=== PATIENT | female | born 1980 | race American Indian/Alaskan Native ===

== ENCOUNTER 2016-10-22 10:54 | Outpatient (CLI) | payer MEDICAID ==
--- NOTE | 2016-10-23 13:30 | Ultrasound Report ---
Bilateral mammogram with spot compression magnification of ill-defined density in subareolar area left breast followed by sonographic examination of the region: No previous studies available. CAD study utilized. Findings: Predominance adipose tissue bilaterally. Ill-defined linear density/focal architectural distortion noted in subareolar area left breast. No microcalcifications or mass. Normal axilla. Spot compression magnification view is partial persistence of the linear density subareolar area however no distinct mass or microcalcification is seen. Sonographic examination reveals no cystic or solid mass. Impression: Benign findings. Annual followup with mammogram recommended. BI-RADS CATEGORY: 2 = Benign ACR BI-RADS MAMMOGRAPHIC CODES: 0 = Needs additional imaging evaluation; 1 = Negative; 2 = Benign; 3 = Probably benign; 4 = Suspicious; 5 = Malignant; 6 = Known biopsy-proven malignancy COMMENT: 1. Dense breast tissue, i.e., adenosis, fibrocystic changes, etc., may obscure an underlying neoplasm. 2. Approximately 10% of cancers are not detected with mammography. 3. A negative mammography report should not delay biopsy if a clinically suspicious mass is present. COMMENT: Patient follow-up letters are generated in [employer].
== END 2016-10-22 10:55 | disposition home or self-care (01) ==
LOC: MAMMO 10:54
PROVIDERS: ATTEND Nurse Practitioner Women's Health
DX: N64.9 Disorder of breast, unspecified (principal); I10 Essential (primary) hypertension
CPT/HCPCS: 76642; G0204; 77066

== ENCOUNTER 2021-04-03 09:13 | Observation (INO) | payer MEDICAID ==
--- NOTE | 2021-04-03 09:21 | Emergency Department Report ---
HPI - General Time Seen by Provider: 04/03/21 09:17 - HPI HPI: 41-year-old -Mexican female presents to the emergency department via EMS from home as a code stroke. The patient woke up this morning with right-sided weakness, numbness, and the patient says that she cannot see from her right eye. She also awoke with a mild generalized headache. She has a past medical hi story of hypertension. She did not take anything, nor receive anything, for her symptoms prior to presentation today. No recent travel or sick contacts at home. She also presents with nausea with vomiting. ED Past Medical Hx - Past Medical History Hx Hypertension: Yes Hx Congestive Heart Failure: No Hx Diabetes: No Hx Asthma: No Hx COPD: No Additional medical history: Umbilical hernia, Vaginal delivery x 4 - Surgical History Additional Surgical History: TUBAL LIGATION. UMBILICAL HERNIA REPAIR 06/01/14 - Social History Smoking Status: Never Smoker Substance Use Type: None - Medications Home Medications: Home Medications Medication Instructions Recorded Confirmed Last Taken Type atenoloL [Tenormin] 50 mg PO QDAY #30 tablet 03/28/14 06/22/14 06/22/14 Rx Motrin 800 mg PO Q6H PRN 06/03/14 06/22/14 06/03/14 06:30 History Ibuprofen [Motrin] 600 mg PO Q8H PRN #50 tablet 08/08/15 Unknown Rx ED Review of Systems ROS: Stated complaint: RT SIDE WEAKNESS/SYNCOPE Other details as noted in HPI Comment: All other systems reviewed and negative Constitutional: denies: chills, fever Eyes: vision change (Right eye). denies: eye pain ENT: denies: ear pain, throat pain Respiratory: denies: cough, shortness of breath Cardiovascular: denies: chest pain, palpitations Gastrointestinal: nausea, vomiting Genitourinary: denies: dysuria, discharge Musculoskeletal: denies: back pain, arthralgia Skin: denies: rash, lesions Neurological: headache, weakness, numbness Physical Exam - Physical Exam Physical Exam: GENERAL: The patient is ill-appearing. HENT: Normocephalic. Atraumatic. Patient has moist mucous membranes. EYES: Extraocular motions are intact. Pupils equal reactive to light bilaterally. No gaze preference. NECK: Supple. Trachea is midline. CHEST/LUNGS: Clear to auscultation. There is no respiratory distress noted. HEART/CARDIOVASCULAR: Regular. There is no tachycardia. There is no murmur. ABDOMEN: Abdomen is soft, nontender. Patient has normal bowel sounds. There is no abdominal distention. SKIN: Skin is warm and dry. NEURO: The patient is awake, alert, and oriented. The patient is cooperative. Right upper extremity pronator drift. No movement of the right lower extremity against gravity. Subjective decrease sensation to the right side of the face, arm and right leg when compared to the left side. Normal speech. No facial asymmetry. MUSCULOSKELETAL: There is no tenderness or deformity. ED Course - Consultations Consultation #1: 04/03/21 09:58 Patient was seen by the telemedicine neurologist, Dr. Otero, who is full recommendations will be in the chart. She agrees that the patient does not appear to be a TPA candidate as she woke up with the symptoms and there is no obvious last known well time. If there is no CT angiography evidence of a large vessel occlusion, then the patient will be admitted to the hospital for MRI and further stroke work-up. ED Medical Decision Making - Lab Data Result diagrams: 04/03/21 09:55 04/03/21 09:55 Lab Results 04/03/21 04/03/21 04/03/21 Range/Units 09:52 09:55 09:55 WBC 7.9 (4.5-11.0) K/mm3 RBC 4.01 (3.65-5.03) M/mm3 Hgb 13.1 (10.1-14.3) gm/dl Hct 39.4 (30.3-42.9) % MCV 98 H (79-97) fl MCH 33 H (28-32) pg MCHC 33 (30-34) % RDW 13.6 (13.2-15.2) % Plt Count 310 (140-440) K/mm3 Lymph % (Auto) 22.2 (13.4-35.0) % [place] % (Auto) 6.6 (0.0-7.3) % Eos % (Auto) 1.3 (0.0-4.3) % Baso % (Auto) 0.9 (0.0-1.8) % Lymph # (Auto) 1.8 (1.2-5.4) K/mm3 [place] # (Auto) 0.5 (0.0-0.8) K/mm3 Eos # (Auto) 0.1 (0.0-0.4) K/mm3 Baso # (Auto) 0.1 (0.0-0.1) K/mm3 Seg Neutrophils % 69.0 (40.0-70.0) % Seg Neutrophils # 5.5 (1.8-7.7) K/mm3 PT 14.3 (12.2-14.9) Sec. INR 1.00 (0.87-1.13) APTT 24.1 L (24.2-36.6) Sec. Thrombin Time 18.7 (15.1-19.6) Sec. Sodium (137-145) mmol/L Potassium (3.6-5.0) mmol/L Chloride (98-107) mmol/L Carbon Dioxide (22-30) mmol/L Anion Gap mmol/L BUN (7-17) mg/dL Creatinine (0.6-1.2) mg/dL Estimated GFR ml/min BUN/Creatinine Ratio % Glucose (65-100) mg/dL POC Glucose 130 H (70-105) mg/dL Calcium (8.4-10.2) mg/dL Total Bilirubin (0.1-1.2) mg/dL AST (5-40) units/L ALT (7-56) units/L Alkaline Phosphatase (35-129) units/L Total Creatine Kinase (30-135) units/L CK-MB (CK-2) (0.0-4.0) ng/mL CK-MB (CK-2) Rel Index (0-4) Troponin T (0.00-0.029) ng/mL Total Protein (6.3-8.2) g/dL Albumin (3.9-5) g/dL Albumin/Globulin Ratio % TSH (0.270-4.200) mlU/mL Plasma/Serum Alcohol (0-0.07) % 04/03/21 04/03/21 04/03/21 Range/Units 09:55 09:55 09:55 WBC (4.5-11.0) K/mm3 RBC (3.65-5.03) M/mm3 Hgb (10.1-14.3) gm/dl Hct (30.3-42.9) % MCV (79-97) fl MCH (28-32) pg MCHC (30-34) % RDW (13.2-15.2) % Plt Count (140-440) K/mm3 Lymph % (Auto) (13.4-35.0) % [place] % (Auto) (0.0-7.3) % Eos % (Auto) (0.0-4.3) % Baso % (Auto) (0.0-1.8) % Lymph # (Auto) (1.2-5.4) K/mm3 [place] # (Auto) (0.0-0.8) K/mm3 Eos # (Auto) (0.0-0.4) K/mm3 Baso # (Auto) (0.0-0.1) K/mm3 Seg Neutrophils % (40.0-70.0) % Seg Neutrophils # (1.8-7.7) K/mm3 PT (12.2-14.9) Sec. INR (0.87-1.13) APTT (24.2-36.6) Sec. Thrombin Time (15.1-19.6) Sec. Sodium 138 (137-145) mmol/L Potassium 3.1 L (3.6-5.0) mmol/L Chloride 99.7 (98-107) mmol/L Carbon Dioxide 21 L (22-30) mmol/L Anion Gap 20 mmol/L BUN 13 (7-17) mg/dL Creatinine 0.6 (0.6-1.2) mg/dL Estimated GFR > 60 ml/min BUN/Creatinine Ratio 22 % Glucose 135 H (65-100) mg/dL POC Glucose (70-105) mg/dL Calcium 9.4 (8.4-10.2) mg/dL Total Bilirubin 0.60 (0.1-1.2) mg/dL AST 27 (5-40) units/L ALT 34 (7-56) units/L Alkaline Phosphatase 42 (35-129) units/L Total Creatine Kinase 92 (30-135) units/L CK-MB (CK-2) < 1.0 (0.0-4.0) ng/mL CK-MB (CK-2) Rel Index 1.0 (0-4) Troponin T < 0.010 (0.00-0.029) ng/mL Total Protein 7.5 (6.3-8.2) g/dL Albumin 4.5 (3.9-5) g/dL Albumin/Globulin Ratio 1.5 % TSH 0.802 (0.270-4.200) mlU/mL Plasma/Serum Alcohol < 0.01 (0-0.07) % - EKG Data -: EKG Interpreted by Co EKG shows normal: sinus rhythm, axis, intervals (Prolonged PA interval), QRS complexes (LVH), ST-T waves (Flattening of the T waves) Rate: normal - EKG Data When compared to previous EKG there are: changes noted (Previous EKG from 09/30/2014 does not show prolonged PA interval) Interpretation: other (Sinus rhythm at 84 bpm, normal axis, slightly prolonged PA interval, LVH. No ST elevation MD) - Radiology Data Radiology results: report reviewed CT HEAD WITHOUT CONTRAST INDICATION / CLINICAL INFORMATION: CODE STROKE [phone]. TECHNIQUE: All CT scans at this location are performed using CT dose reduction for ALARA by means of automated exposure control. COMPARISON: None available. FINDINGS: HEMORRHAGE: No evidence of intracranial hemorrhage or extra-axial fluid collection. EXTRA-AXIAL SPACES: Cortical sulci, sylvian fi ssures and basilar cisterns have an unremarkable appearance. VENTRICULAR SYSTEM: The third and lateral ventricles are of normal size and configuration. CEREBRAL PARENCHYMA: Mild diffuse white matter lucency is noted. Is the patient in hypertensive crisis Is there a history of diabetes, chronic control hypertension, cigarette smoking or renal failure A focal area of decreased brain parenchymal attenuation is observed adjacent to the frontal horn of the right lateral ventricle. This may reflect the presence of remote small deep infarction in this location . Asymmetrical bilateral basal ganglia calcification is noted. No additional areas of abnormal brain parenchymal attenuation are identified. MIDLINE SHIFT OR HERNIATION: There is no mass effect. CEREBELLUM / BRAINSTEM: Brainstem and cerebellum have an unremarkable appearance. MIDLINE STRUCTURES:No abnormalities of the pituitary gland or pineal region are identified. INTRACRANIAL VESSELS:No abnormalities are identified on this noncontrast head CT. ORBITS: visualized portions of the orbits have an unremarkable appearance. SOFT TISSUES of HEAD: No significant abnormality. CALVARIUM: Evaluation of bone windows reveals no abnormalities. PARANASAL SINUSES / MASTOID AIR CELLS: Visualized portions of the paranasal sinuses are free from inflammatory mucosal disease. Mastoid air cells are normally pneumatized. IMPRESSION: 1. Widespread white matter lucency. 2. Evidence of remote small deep infarction adjacent to the frontal horn of the right lateral ventricle. 3. No acute intracranial abnormalities are identified. CTA neck without and with intravenous contrast material CLINICAL HISTORY: stroke sx 100 ml omni 350 TECHNIQUE: Following acquisition of a timing bolus 0.625 mm thick contiguous axial scans were obtained from aortic arch to the skull base during rapid bolus intravenous contrast infusion. In addition to evaluation of axial source images multiplanar reconstructions were produced and reviewed for this report. 3 plane MIP reconstructions were produced and reviewed. Contrast dose report: Omnipaque 350: 100 ml, administered intravenously All CT examinations performed at this facility utilize modulated dose reduction, iterative reconstruction or weight-based dosing, as appropriate, to obtain a radiation dose which is as low as can reasonably be achieved. FINDINGS: Thoracic aorta:No abnormalities are identified along the course of the thoracic aorta..The origins of the great vessels have an unremarkable appearance. Brachiocephalic artery, left common carotid artery origin and left subclavian artery all have an unremarkable appearance. Right carotid artery:No abnormalities are seen along the course of the RCCA, at the right carotid bifurcation or along the cervical portions of the FAVIAN. Left carotid artery: No abnormalities are noted along the course of the left common carotid artery, at the left carotid bifurcation or along the course of the cervical segments of the LICA. Posterior circulation:The vertebral arteries have an unremarkable appearance. Both vertebral arteries contribute to the basilar artery origin. The basilar artery has an unremarkable appearance. The degree of stenosis, if any, is determined utilizing NASCET like criteria. In this case there is no indication of hemodynamically significant stenosis at the carotid bifurcations or elsewhere. Evaluation of the nonvascular soft tissue structures reveal no abnormality. There is no indication of cervical lymphadenopathy. No abnormalities are seen along the course of the airway. Visualized portions of the parotid glands and the submandibular salivary glands have a normal appearance. Thyroid gland has a normal appearance. Evaluation of the lung apices reveals no evidence of lung nodule or infiltrate. Evaluation of the cervical spine revealed no significant abnormalities. IMPRESSION: 1. No significant abnormalities are identified on CTA neck. 2. No indication of hemodynamically significant stenosis at the carotid bifurcations or elsewhere. CTA head with intravenous contrast CLINICAL HISTORY: 100 ml omni 350 TECHNIQUE: 0.625 mm thick contiguous axial scans were obtained from the skull base to the skull vertex during rapid bolus administration of intravenous contrast material. Multiplanar reconstructions were produced in the coronal and sagittal planes. In addition 3 plane MIP instructions were produced and reviewed for this report. The axial source images and reconstructed images were reviewed for this report. CONTRAST DOSE REPORT: Omnipaque 350: 100 ml administered intravenously. All CT scans at this location are performed using CT dose reduction for ALARA by means of automated exposure control. FINDINGS: Internal carotid arteries:Jonathan, cavernous, opthalmic, clinoid and supraclinoid segments of the ICAs have an unremarkable appearance. Middle cerebral arteries:Normal and symmetrical M1 segments of the middle cerebral arteries are demonstrated. No abnormalities are seen on evaluation of the insular or opercular branches. Anterior cerebral arteries:Bilaterally symmetrical A1 s egments are demonstrated. No abnormalities are seen along the course of the A2 segments or their visualized pericallosal branches. An intact anterior communicating artery is demonstrated. Vertebral arteries:Bilaterally symmetrical vertebral arteries are demonstrated. Both vertebral arteries contrib [place] to the basilar artery origin. Basilar artery:Basilar artery has an unremarkable appearance. Posterior cerebral arteries:Bilaterally symmetrical posterior cerebral arteries are identified.. Intact posterior communicating arteries are demonstrated bilaterally. [place]: Intact. See above. Dural sinuses: Dural venous sinuses are well demonstrated on this exam. There is no evidence of dural sinus thrombosis. Filling defect in the anterior aspect of the superior sagittal sinus likely reflects the presence of a pacchionian granulation. IMPRESSION: 1. No indication of intercranial stenosis or large vessel occlusion. 2. Intact [place]. - Medical Decision Making This patient woke up this morning with a complaint of decreased vision in the right eye, right-sided weakness and right-sided numbness. Code stroke was initiated. CT of the head without contrast does not show any hemorrhage, large vessel occlusion, or any acute process. CT angiography of the head and neck does not show any occlusion, stenosis, or any acute process. Patient was seen by the telemedicine neurologist, Dr. Otero, who gave the patient an NIH stroke scale of three. Since the patient woke up with symptoms she is not a TPA candidate. She does not appear to require thrombectomy given the negative CT angiography studies. Labs have been mostly unremarkable except for some mild hypokalemia with a potassium level of 3.1. She was given potassium chloride and aspirin. She will be admitted to the hospital for further evaluation and treatment for this possible CVA and has been accepted for admission by the hospitalist, Dr. Kam. Critical Care Time: Yes Critical care time in (mins) excluding proc time.: 35 Critical care attestation.: If time is entered above; I have spent that time in minutes in the direct care of this critically ill patient, excluding procedure time. Critical care time spent on this patient in doing her initial evaluation, multiple reevaluations, ordering and interpretation of labs and imaging, discussion with the telemedicine neurologist, aspirin and potassium chloride, multiple discussions with the patient. Critical Care Time: 35 minutes ED Disposition Clinical Impression: Hypokalemia, Right sided weakness CVA (cerebral vascular accident) Qualifiers: CVA mechanism: unspecified Qualified Code(s): I63.9 - Cerebral infarction, unspecified Hypertension Qualifiers: Hypertension type: primary hypertension Qualified Code(s): I10 - Essential (primary) hypertension Disposition: 09 ADMITTED INPATIENT Is pt being admited?: Yes Condition: Serious Instructions: Hypertension (ED) Referrals: PRIMARY CARE, [Primary Care Provider] - 3-5 Days Time of Disposition: 11:47
--- NOTE | 2021-04-03 09:38 | Emergency Department Report ---
Blank Doc - Documentation Documentation: [place] [facility] Consult Note # Demographics Consult Type: Acute Stroke Level 2 (4.5-24 hrs) Patient Location: Emergency Room First Name: Vanessa Last Name: Sadiq Date of : 1980 Age: 41 Gender: Female Facility: [facility] Time of Initial Page ( Time): 04/03/2021, 09:18 Time of Return Call ( Time): 04/03/2021, 09:18 # HPI History: pt woke with right sided weakness and right sided vision loss. # Scores Time of exam and NIHSS ( Time): 04/03/2021, 09:34 Level of Consciousness 1a: [0] = Alert; keenly responsive LOC Questions 1b: [0] = Answers both questions correctly LOC Commands 1c: [0] = Performs both tasks correctly Best Gaze 2: [0] = Normal Visual 3: [0] = No visual loss Facial Palsy 4: [0] = Normal symmetrical movements Motor Arm Left 5a: [0] = No drift Motor Arm Right 5b: [1] = Drift Motor Leg Left 6a: [0] = No drift Motor Leg Right 6b: [1] = Drift Limb Ataxia 7: [0] = Absent Sensory 8: [1] = Vnim-wi-mfxerjuz sensory loss Best Language 9: [0] = No aphasia Dysarthria 10: [0] = Normal Extinction and Inattention 11: [0] = No abnormality NIHSS Total: 3 # PMH-FH-SH Past Medical History: hypertension # Assessment Impression: Ischemic Stroke (Acute) Stroke Mimic # Plan Thrombolytic/Intervention: NOT IV Thrombolysis or IA Intervention candidate Thrombolytic Exclusion: > 4.5 hours Intraarterial Exclusion: no large vessel occlusion (LVO) Imaging: (urgency: STAT): CT Angiogram Head and CT Angiogram Neck AND call back with results if abnormal Imaging: (urgency: routine): MRI Brain without contrast Other: I have discussed my recommendations with the referring provider Additional Recommendations: Further work-up based on MRI results # Logistics Telemedicine: Interactive 2 way audio and visual telecommunication technology was utilized during this visit
--- NOTE | 2021-04-03 09:54 | Cat Scan Report ---
CT HEAD WITHOUT CONTRAST INDICATION / CLINICAL INFORMATION: CODE STROKE [phone]. TECHNIQUE: All CT scans at this location are performed using CT dose reduction for ALARA by means of automated e xposure control. COMPARISON: None available. FINDINGS: HEMORRHAGE: No evidence of intracranial hemorrhage or extra-axial fluid collection. EXTRA-AXIAL SPACES: Cortical sulci, sylvian fissures and basilar cisterns have an unremarkable appear ance. VENTRICULAR SYSTEM: The third and lateral ventricles are of normal size and configuration. CEREBRAL PARENCHYMA: Mild diffuse white matter lucency is noted. Is the patient in hypertensive crisi s Is there a history of diabetes, chronic control hypertension, cigarette smoking or renal failure A focal area of decreased brain parenchymal attenuation is observed adjacent to the frontal horn of the right lateral ventricle. This may reflect the presence of remote small deep infarction in this locat ion . Asymmetrical bilateral basal ganglia calcification is noted. No additional areas of abnormal b rain parenchymal attenuation are identified. MIDLINE SHIFT OR HERNIATION: There is no mass effect. CEREBELLUM / BRAINSTEM: Brainstem and cerebellum have an unremarkable appearance. MIDLINE STRUCTURES:No abnormalities of the pituitary gland or pineal region are identified. INTRACRANIAL VESSELS:No abnormalities are identified on this noncontrast head CT. ORBITS: visualized portions of the orbits have an unremarkable appearance. SOFT TISSUES of HEAD: No significant abnormality. CALVARIUM: Evaluation of bone windows reveals no abnormalities. PARANASAL SINUSES / MASTOID AIR CELLS: Visualized portions of the paranasal sinuses are free from inf lammatory mucosal disease. Mastoid air cells are normally pneumatized. IMPRESSION: 1. Widespread white matter lucency. 2. Evidence of remote small deep infarction adjacent to the frontal horn of the right lateral ventric le. 3. No acute intracranial abnormalities are identified. CODE STROKE: Time of Communication (DIE ENGRAVER/CDT): 0844 hours Central standard time Licensed Practitioner Receiving Report: Dr. Ricco Redding of the [facility] Emerge ncy Department Signer Name: Yoan Lakhani MD Signed: 04/03/2021 9:50 AM Workstation Name: [id number]
--- NOTE | 2021-04-03 09:59 | Cat Scan Report ---
CTA neck without and with intravenous contrast material CLINICAL HISTORY: stroke sx 100 ml omni 350 TECHNIQUE: Following acquisition of a timing bolus 0.625 mm thick contiguous axial scans were obtained from aort ic arch to the skull base during rapid bolus intravenous contrast infusion. In addition to evaluation of axial source images multiplanar reconstructions were produced and reviewed for this report. 3 alexandra ne MIP reconstructions were produced and reviewed. Contrast dose report: Omnipaque 350: 100 ml, administered intravenously All CT examinations performed at this facility utilize modulated dose reduction, iterative reconstruc tion or weight-based dosing, as appropriate, to obtain a radiation dose which is as low as can reason ably be achieved. FINDINGS: Thoracic aorta:No abnormalities are identified along the course of the thoracic aorta..The origins of the great vessels have an unremarkable appearance. Brachiocephalic artery, left common carotid arter y origin and left subclavian artery all have an unremarkable appearance. Right carotid artery:No abnormalities are seen along the course of the RCCA, at the right carotid bif urcation or along the cervical portions of the FAVIAN. Left carotid artery: No abnormalities are noted along the course of the left common carotid artery, a t the left carotid bifurcation or along the course of the cervical segments of the LICA. Posterior circulation:The vertebral arteries have an unremarkable appearance. Both vertebral arteries contribute to the basilar artery origin. The basilar artery has an unremarkable appearance. The degree of stenosis, if any, is determined utilizing NASCET like criteria. In this case there is no indication of hemodynamically significant stenosis at the carotid bifurcations or elsewhere. Evaluation of the nonvascular soft tissue structures reveal no abnormality. There is no indication of cervical lymphadenopathy. No abnormalities are seen along the course of the airway. Visualized porti ons of the parotid glands and the submandibular salivary glands have a normal appearance. Thyroid gla nd has a normal appearance. Evaluation of the lung apices reveals no evidence of lung nodule or infil trate. Evaluation of the cervical spine revealed no significant abnormalities. IMPRESSION: 1. No significant abnormalities are identified on CTA neck. 2. No indication of hemodynamically significant stenosis at the carotid bifurcations or elsewhere. Signer Name: Yoan Lakhani MD Signed: 04/03/2021 9:55 AM Workstation Name: [id number]
--- NOTE | 2021-04-03 10:03 | Cat Scan Report ---
CTA head with intravenous contrast CLINICAL HISTORY: 100 ml omni 350 TECHNIQUE: 0.625 mm thick contiguous axial scans were obtained from the skull base to the skull vertex during r apid bolus administration of intravenous contrast material. Multiplanar reconstructions were produced in the coronal and sagittal planes. In addition 3 plane MIP instructions were produced and reviewed for this report. The axial source images and reconstructed images were reviewed for this report. CONTRAST DOSE REPORT: Omnipaque 350: 100 ml administered intravenously. All CT scans at this location are performed using CT dose reduction for ALARA by means of automated e xposure control. FINDINGS: Internal carotid arteries:Jonathan, cavernous, opthalmic, clinoid and supraclinoid segments of the ICAs have an unremarkable appearance. Middle cerebral arteries:Normal and symmetrical M1 segments of the middle cerebral arteries are demon strated. No abnormalities are seen on evaluation of the insular or opercular branches. Anterior cerebral arteries:Bilaterally symmetrical A1 segments are demonstrated. No abnormalities are seen along the course of the A2 segments or their visualized pericallosal branches. An intact anteri or communicating artery is demonstrated. Vertebral arteries:Bilaterally symmetrical vertebral arteries are demonstrated. Both vertebral arteri es contribute to the basilar artery origin. Basilar artery:Basilar artery has an unremarkable appearance. Posterior cerebral arteries:Bilaterally symmetrical posterior cerebral arteries are identified.. Int act posterior communicating arteries are demonstrated bilaterally. [place]: Intact. See above. Dural sinuses: Dural venous sinuses are well demonstrated on this exam. There is no evidence of dural sinus thrombosis. Filling defect in the anterior aspect of the superior sagittal sinus likely reflec ts the presence of a pacchionian granulation. IMPRESSION: 1. No indication of intercranial stenosis or large vessel occlusion. 2. Intact [place]. Signer Name: Yoan Lakhani MD Signed: 04/03/2021 9:59 AM Workstation Name: [id number]
[2021-04-03] MEDS ORDERED: ONDANSETRON 4 MG/2 ML INJ IV ONE (10:30)
[2021-04-03] MEDS ORDERED: ASPIRIN 81 MG TAB CHEW PO ONE (10:31)
[2021-04-03 10:51] LABS: Basophils # (Auto) 0.1 K/mm3 (0.0-0.1); Basophils % (Auto) 0.9 % (0.0-1.8); Eosinophils # (Auto) 0.1 K/mm3 (0.0-0.4); Eosinophils % (Auto) 1.3 % (0.0-4.3); Hematocrit 39.4 % (30.3-42.9); Hemoglobin 13.1 gm/dl (10.1-14.3); Lymphocytes # (Auto) 1.8 K/mm3 (1.2-5.4); Lymphocytes % (Auto) 22.2 % (13.4-35.0); Mean Corpuscular HGB Conc 33 % (30-34); Mean Corpuscular Volume 98 fl (79-97); Monocytes # (Auto) 0.5 K/mm3 (0.0-0.8); Monocytes % (Auto) 6.6 % (0.0-7.3); Platelet Count 310 K/mm3 (140-440); Red Blood Count 4.01 M/mm3 (3.65-5.03); Red Cell Distribution Width 13.6 % (13.2-15.2)
[2021-04-03 11:03] LABS: Partial Thromboplastin Time 24.1 Sec. (24.2-36.6)
[2021-04-03 11:04] LABS: Thrombin Time 18.7 Sec. (15.1-19.6)
[2021-04-03 11:36] LABS: Alanine Aminotransferase 34 units/L (7-56); Albumin 4.5 g/dL (3.9-5); Blood Urea Nitrogen 13 mg/dL (7-17); Calcium 9.4 mg/dL (8.4-10.2); Hemolysis Index 10
[2021-04-03 11:37] LABS: BUN/Creatinine Ratio 22; Creatine Kinase MB < 1.0 ng/mL (0.0-4.0)
[2021-04-03] MEDS ORDERED: POTASSIUM CHLORIDE ER 20 MEQ TAB PO ONE ×2 (11:38→18:05)
[2021-04-03] MEDS ORDERED: ACETAMINOPHEN 325 MG TAB PO PRN (14:30)
[2021-04-03] MEDS ORDERED: oxyCODONE /ACETAMINOPHEN 5-325MG TAB PO PRN (14:30)
[2021-04-03] MEDS ORDERED: HEPARIN 5,000 UNIT/1 ML VIAL SUB-Q SCH (14:30)
[2021-04-03] MEDS ORDERED: ONDANSETRON 4 MG/2 ML INJ IV PRN (14:30)
--- NOTE | 2021-04-03 14:44 | Consultation ---
History of Present Illness Consult date: 04/03/21 Reason for Consult: headache and right side weakness since am History of present illness: 41-year-old -Burmese female presents to the emergency department via EMS from home as a code stroke. The patient woke up this morning with right-sided weakness, numbness, and the patient says that she cannot see from her right eye. She also awoke with a mild generalized headache. She has a past medical history of hypertension. She did not take anything, nor receive anything, for her symptoms prior to presentation today. No recent travel or sick contacts at home. She also presents with nausea with vomiting. ED Past Medical Hx - Past Medical History Hx Hypertension: Yes Hx Congestive Heart Failure: No Hx Diabetes: No Hx Asthma: No Hx COPD: No Additional medical history: Umbilical hernia, Vaginal delivery x 4 - Surgical History Additional Surgical History: TUBAL LIGATION. UMBILICAL HERNIA REPAIR 06/01/14 - Social History Smoking Status: Never Smoker Substance Use Type: None - Medications Home Medications: Home Medications Medication Instructions Recorded Confirmed Last Taken Type atenoloL [Tenormin] 50 mg PO QDAY #30 tablet 03/28/14 06/22/14 06/22/14 Rx Motrin 800 mg PO Q6H PRN 06/03/14 06/22/14 06/03/14 06:30 History Ibuprofen [Motrin] 600 mg PO Q8H PRN #50 tablet 08/08/15 Unknown Rx ED Review of Systems ROS: Stated complaint: RT SIDE WEAKNESS/SYNCOPE Other details as noted in HPI Comment: All other systems reviewed and negative Medications and Allergies Allergies Allergy/AdvReac Type Severity Reaction Status Date / Time tramadol Allergy Anaphylaxis Verified 03/05/15 17:06 hydrocodone AdvReac Nausea Verified 03/05/15 17:06 Home Medications Medication Instructions Recorded Confirmed Last Taken Type Motrin 800 mg PO Q6H PRN 06/03/14 06/22/14 06/03/14 06:30 History Ibuprofen [Motrin] 600 mg PO Q8H PRN #50 tablet 08/08/15 Unknown Rx Valsartan [Diovan] 160 mg PO Q12H 30 Days #60 tablet 04/03/21 Unknown Rx atenoloL [Tenormin] 50 mg PO QDAY #30 tablet 04/03/21 Unknown Rx Active Meds: Active Medications Acetaminophen (Acetaminophen 325 Mg Tab) 650 mg PO Q4H PRN PRN Reason: Pain MILD(1-3)/Fever >100.5/QUINTERO Heparin Sodium (Porcine) (Heparin 5,000 Unit/1 Ml Vial) 5,000 unit SUB-Q Q12HR JANICE Sodium Chloride (Nacl 0.9% 1000 Ml) 1,000 mls @ 100 mls/hr IV DIRECT JANICE Ondansetron HCl (Ondansetron 4 Mg/2 Ml Inj) 4 mg IV Q8H PRN PRN Reason: Nausea And Vomiting Oxycodone/Acetaminophen (Oxycodone /Acetaminophen 5-325mg Tab) 1 tab PO Q6H PRN PRN Reason: Pain, Moderate (4-6) Sodium Chloride (Sodium Chloride 0.9% 10 Ml Flush Syringe) 10 ml IV BID JANICE Sodium Chloride (Sodium Chloride 0.9% 10 Ml Flush Syringe) 10 ml IV PRN PRN PRN Reason: LINE FLUSH Sodium Chloride (Sodium Chloride 0.9% 50 Ml Ivpb) 10 ml IV PRN PRN PRN Reason: FLUSH Physical Examination - Vital Signs Vital Signs: Vital Signs Resp 04/03/21 10:27 - Constitutional General appearance: comfortable - EENT EENT: Present: PERRL, mucous membranes moist - Respiratory Respiratory: Present: chest non-tender, lungs clear - Cardiovascular Cardiovascular: Present: regular rate, normal S1, normal S2 Extremities: Present: no peripheral edema bilatateraly, no clubbing, cyanosis - Gastrointestinal Gastrointestinal: Present: normoactive bowel sounds - Integumentary Integumentary: Present: normal - Neurologic Cranial nerve examination: PERRL, EOMI, facial droop Speech examination: intact Sensorimotor examination: intact Detailed motor examination: other (slight right pronator drift, and or right leg weakness) - Level of Consciousness 1a. Level of Consciousness: alert/keenly responsive - LOC Questions 1b. LOC Questions: answers both correctly - LOC Command 1c. LOC Commands: performs tasks correctly - Best Gaze 2. Best Gaze: normal - Visual 3. Visual: no visual loss - Facial Palsy 4. Facial Palsy: minor paralysis - Motor Arm 5a. Motor Arm Left: no drift 5b. Motor Arm Right: drift - Motor Leg 6a. Motor Leg Left: no drift 6b. Motor Leg Right: drift - Limb Ataxia 7. Limb Ataxia: absent - Sensory 8. Sensory: normal - Best Language 9. Best Language: no aphasia - Dysarthria 10. Dysarthria: normal - Extinction and Inattention 11. Extinction/Inattention: no abnormality - Scoring Total Score: 3 Stroke Severity: Minor Stroke Results - Laboratory Findings CBC and BMP: 04/03/21 09:55 04/03/21 09:55 Abnormal Lab Findings: Abnormal Labs 04/03/21 04/03/21 04/03/21 09:52 09:55 09:55 MCV 98 H MCH 33 H APTT 24.1 L Potassium Carbon Dioxide Glucose POC Glucose 130 H 04/03/21 09:55 MCV MCH APTT Potassium 3.1 L Carbon Dioxide 21 L Glucose 135 H POC Glucose Assessment and Plan 41-year-old -Burmese female presents to the emergency department via EMS from home as a code stroke. The patient woke up this morning with right-sided weakness, numbness, and the patient says that she cannot see from her right eye. She also awoke with a mild generalized headache. She has a past medical history of hypertension. She did not take anything, nor receive anything, for her symptoms prior to presentation today. No recent travel or sick contacts at home. She also presents with nausea with vomiting. Clinical Impression: #CVA (cerebral vascular accident) -new onset of headache and right side weakness and or blurred vison -incident time is not clear pt. is not a candidate for TPA nor thrombectomy -CT brain is remarkable for none specific white matter changes -CTA brain and neck are unremarkable -MRI to be done wo/w gd r/o CVA r/o demylinating disease.!!! -started on ASA and Lipitor -Initial and my NIH#3 -neuro check q shift -LDL is pending -UDS -echo -cardiac monitering -PT/St evaluate #Hypertension # Headache -Allow for permissive HTN> 24 hours<180/95 # Headache - none specific she is with hx of intermittent headache at time associated with nausea and visual changes -possible migraine -fiorcet prn headache q 6 houre -MRI brain -Complicated migraine can not be excluded -send for lupus anticoagulany -ESR,KAMLA,B12,sickle screen # Blurred vision -note right eye associated with headache -NIH#3 -no visual deficit is note -?Migraine -demylinating disease to r/o will follow
[2021-04-03] MEDS ORDERED: SODIUM CHLORIDE 0.9% 1000 ML 1,000 ML IV SCH (15:00)
[2021-04-03] MEDS ORDERED: SODIUM CHLORIDE 0.9% 50 ML IVPB IV PRN (15:00)
--- NOTE | 2021-04-03 18:06 | History and Physical Report ---
History of Present Illness Date of examination: 04/03/21 Date of admission: 04/03/21 13:00 Chief complaint: Right-sided weakness since a.m. History of present illness: 41-year-old -[place] female presents to the emergency department via EMS from home as a code stroke. The patient woke up this morning with right-sided weakness, numbness, and the patient says that she cannot see from her right eye. She also awoke with a mild generalized headache. She has a past medical history of hypertension. She did not take anything, nor receive anything, for her symptoms prior to presentation today. No recent travel or sick contacts at home. She also presents with nausea with vomiting. - Past Medical History --Hypertension: Yes --Additional medical history: Umbilical hernia, Vaginal delivery x 4 - Surgical History --Additional Surgical History: TUBAL LIGATION. UMBILICAL HERNIA REPAIR 06/01/14 - Social History Smoking Status: Never Smoker Substance Use Type: None - Medications Home Medications: Home Medications Medication Instructions Recorded Confirmed Last Taken Type atenoloL [Tenormin] 50 mg PO QDAY #30 tablet 03/28/14 06/22/14 06/22/14 Rx Motrin 800 mg PO Q6H PRN 06/03/14 06/22/14 06/03/14 06:30 History Ibuprofen [Motrin] 600 mg PO Q8H PRN #50 tablet 08/08/15 Unknown Rx --Review of Systems ROS: Stated complaint: RT SIDE WEAKNESS/SYNCOPE Other details as noted in HPI Comment: All other systems reviewed and negative Constitutional: denies: chills, fever Eyes: vision change (Right eye). denies: eye pain ENT: denies: ear pain, throat pain Respiratory: denies: cough, shortness of breath Cardiovascular: denies: chest pain, palpitations Gastrointestinal: nausea, vomiting Genitourinary: denies: dysuria, discharge Musculoskeletal: denies: back pain, arthralgia Skin: denies: rash, lesions Neurological: headache, weakness, numbness Medications and Allergies Allergies Allergy/AdvReac Type Severity Reaction Status Date / Time tramadol Allergy Anaphylaxis Verified 03/05/15 17:06 hydrocodone AdvReac Nausea Verified 03/05/15 17:06 Home Medications Medication Instructions Recorded Confirmed Last Taken Type Motrin 800 mg PO Q6H PRN 06/03/14 06/22/1415 06:30 History Ibuprofen [Motrin] 600 mg PO Q8H PRN #50 tablet 08/08/15 Unknown Rx Valsartan [Diovan] 160 mg PO Q12H 30 Days #60 tablet 04/03/21 Unknown Rx atenoloL [Tenormin] 50 mg PO QDAY #30 tablet 04/03/21 Unknown Rx Active Meds: Active Medications Acetaminophen (Acetaminophen 325 Mg Tab) 650 mg PO Q4H PRN PRN Reason: Pain MILD(1-3)/Fever >100.5/QUINTERO Heparin Sodium (Porcine) (Heparin 5,000 Unit/1 Ml Vial) 5,000 unit SUB-Q Q12HR JANICE Last Admin: 04/03/21 15:21 Dose: 5,000 unit Sodium Chloride (Nacl 0.9% 1000 Ml) 1,000 mls @ 100 mls/hr IV DIRECT JANICE Ondansetron HCl (Ondansetron 4 Mg/2 Ml Inj) 4 mg IV Q8H PRN PRN Reason: Nausea And Vomiting Oxycodone/Acetaminophen (Oxycodone /Acetaminophen 5-325mg Tab) 1 tab PO Q6H PRN PRN Reason: Pain, Moderate (4-6) Potassium Chloride (Potassium Chloride Er 20 Meq Tab) 20 meq PO ONCE ONE Stop: 04/03/21 18:06 Sodium Chloride (Sodium Chloride 0.9% 10 Ml Flush Syringe) 10 ml IV BID JANICE Sodium Chloride (Sodium Chloride 0.9% 10 Ml Flush Syringe) 10 ml IV PRN PRN PRN Reason: LINE FLUSH Sodium Chloride (Sodium Chloride 0.9% 50 Ml Ivpb) 10 ml IV PRN PRN PRN Reason: FLUSH Exam - Constitutional Vitals: Temp Pulse Resp BP Pulse Ox 82 13 148/91 99 04/03/21 14:45 04/03/21 15:31 04/03/21 15:31 04/03/21 15:31 General appearance: Present: no acute distress, well-nourished - EENT Eyes: Present: PERRL ENT: hearing intact, clear oral mucosa - Neck Neck: Present: supple, normal ROM - Respiratory Respiratory effort: normal Respiratory: bilateral: CTA - Cardiovascular Heart rate: 78 Rhythm: regular Heart Sounds: Present: S1 & S2. Absent: rub, click - Extremities Extremities: pulses symmetrical, No edema Peripheral Pulses: within normal limits - Abdominal General gastrointestinal: Present: soft, non-tender, non-distended, normal bowel sounds Female genitourinary: Present: normal - Integumentary Integumentary: Present: clear, warm, dry - Musculoskeletal Musculoskeletal: gait normal, strength equal bilaterally - Psychiatric Psychiatric: appropriate mood/affect, intact judgment & insight - Neurologic Neurologic: CNII-XII intact, moves all extremities HEART Score - HEART Score Troponin: Troponin T < 0.010 ng/mL (0.00-0.029) 04/03/21 09:55 Results - Labs CBC & Chem 7: 04/03/21 09:55 04/03/21 09:55 Labs: Laboratory Last Values WBC 7.9 K/mm3 (4.5-11.0) 04/03/21 09:55 RBC 4.01 M/mm3 (3.65-5.03) 04/03/21 09:55 Hgb 13.1 gm/dl (10.1-14.3) 04/03/21 09:55 Hct 39.4 % (30.3-42.9) 04/03/21 09:55 MCV 98 fl (79-97) H 04/03/21 09:55 MCH 33 pg (28-32) H 04/03/21 09:55 MCHC 33 % (30-34) 04/03/21 09:55 RDW 13.6 % (13.2-15.2) 04/03/21 09:55 Plt Count 310 K/mm3 (140-440) 04/03/21 09:55 Lymph % (Auto) 22.2 % (13.4-35.0) 04/03/21 09:55 [place] % (Auto) 6.6 % (0.0-7.3) 04/03/21 09:55 Eos % (Auto) 1.3 % (0.0-4.3) 04/03/21 09:55 Baso % (Auto) 0.9 % (0.0-1.8) 04/03/21 09:55 Lymph # (Auto) 1.8 K/mm3 (1.2-5.4) 04/03/21 09:55 [place] # (Auto) 0.5 K/mm3 (0.0-0.8) 04/03/21 09:55 Eos # (Auto) 0.1 K/mm3 (0.0-0.4) 04/03/21 09:55 Baso # (Auto) 0.1 K/mm3 (0.0-0.1) 04/03/21 09:55 Seg Neutrophils % 69.0 % (40.0-70.0) 04/03/21 09:55 Seg Neutrophils # 5.5 K/mm3 (1.8-7.7) 04/03/21 09:55 PT 14.3 Sec. (12.2-14.9) 04/03/21 09:55 INR 1.00 (0.87-1.13) 04/03/21 09:55 APTT 24.1 Sec. (24.2-36.6) L 04/03/21 09:55 Thrombin Time 18.7 Sec. (15.1-19.6) 04/03/21 09:55 Sodium 138 mmol/L (137-145) 04/03/21 09:55 Potassium 3.1 mmol/L (3.6-5.0) L 04/03/21 09:55 Chloride 99.7 mmol/L (98-107) 04/03/21 09:55 Carbon Dioxide 21 mmol/L (22-30) L 04/03/21 09:55 Anion Gap 20 mmol/L 04/03/21 09:55 BUN 13 mg/dL (7-17) 04/03/21 09:55 Creatinine 0.6 mg/dL (0.6-1.2) 04/03/21 09:55 Estimated GFR > 60 ml/min 04/03/21 09:55 BUN/Creatinine Ratio 22 % 04/03/21 09:55 Glucose 135 mg/dL (65-100) H 04/03/21 09:55 POC Glucose 130 mg/dL (70-105) H 04/03/21 09:52 Calcium 9.4 mg/dL (8.4-10.2) 04/03/21 09:55 Total Bilirubin 0.60 mg/dL (0.1-1.2) 04/03/21 09:55 AST 27 units/L (5-40) 04/03/21 09:55 ALT 34 units/L (7-56) 04/03/21 09:55 Alkaline Phosphatase 42 units/L (35-129) 04/03/21 09:55 Total Creatine Kinase 92 units/L (30-135) 04/03/21 09:55 CK-MB (CK-2) < 1.0 ng/mL (0.0-4.0) 04/03/21 09:55 CK-MB (CK-2) Rel Index 1.0 (0-4) 04/03/21 09:55 Troponin T < 0.010 ng/mL (0.00-0.029) 04/03/21 09:55 Total Protein 7.5 g/dL (6.3-8.2) 04/03/21 09:55 Albumin 4.5 g/dL (3.9-5) 04/03/21 09:55 Albumin/Globulin Ratio 1.5 % 04/03/21 09:55 TSH 0.802 mlU/mL (0.270-4.200) 04/03/21 09:55 Plasma/Serum Alcohol < 0.01 % (0-0.07) 04/03/21 09:55 Assessment and Plan Advance Directives: Yes (Full code) VTE prophylaxis?: Chemical Plan of care discussed with patient/family: Yes - Patient Problems (1) Uncontrolled hypertension Status: Acute Plan to address problem: Patient counseled about her blood pressure and medications were changed Patient was started on valsartan 160 mg daily tomorrow and amlodipine 10 mg daily (2) Hypokalemia Status: Acute Plan to address problem: Supplemented (3) Right sided weakness Status: Acute Plan to address problem: Functional component Patient has a lot of stress Weakness resolved completely and there was no visual loss No further work-up needed (4) DVT prophylaxis Status: Acute Plan to address problem: On anticoagulation GI prophylaxis
[2021-04-03 19:17] VITALS: BP 150/98
--- NOTE | 2021-04-04 08:47 | Electrocardiograph Report ---
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
--- NOTE | 2021-04-04 09:24 | Discharge Summary ---
Providers - Providers Date of Admission: 04/03/21 13:00 Date of discharge: 04/03/21 Attending physician: JORGE LUIS EMMANUEL 04/03/21 14:13 Consult to Physician [CONS] Routine Comment: Consulting Provider: EVELYN GRIMES Physician Instructions: Reason For Exam: CVA Primary care physician: [employer] INSTRUCTOR Hospitalization Condition: Good Hospital course: 41-year-old -[place]ron[place] female presents to the emergency department via EMS from home as a code stroke. The patient woke up this morning with right-sided weakness, numbness, and the patient says that she cannot see from her right eye. She also awoke with a mild generalized headache. She has a past medical history of hypertension. She did not take anything, nor receive anything, for her symptoms prior to presentation today. No recent travel or sick contacts at home. She also presents with nausea with vomiting. Assessment and Plan Advance Directives: Yes (Full code) VTE prophylaxis?: Chemical Plan of care discussed with patient/family: Yes - Patient Problems (1) Uncontrolled hypertension Status: Acute Plan to address problem: Patient counseled about her blood pressure and medications were changed Patient was started on valsartan 160 mg daily tomorrow and amlodipine 10 mg daily (2) Hypokalemia Status: Acute Plan to address problem: Supplemented (3) Right sided weakness Status: Acute Plan to address problem: Functional component Patient has a lot of stress Weakness resolved completely and there was no visual loss No further work-up needed Disposition: 01 HOME / SELF CARE / HOMELESS Final Discharge Diagnosis (Prints w/discharge instructions): Uncontrolled hypertension. Hypokalemia. Right-sided weakness Time spent for discharge: 32 minutes - Discharge Diagnoses (1) Uncontrolled hypertension Status: Acute (2) Hypokalemia Status: Acute (3) Right sided weakness Status: Acute (4) DVT prophylaxis Status: Acute Core Measure Documentation - Palliative Care Palliative Care/ Comfort Measures: Not Applicable - Core Measures Any of the following diagnoses?: none Exam - Constitutional Vitals: Temp Pulse Resp BP Pulse Ox 82 17 150/98 96 04/03/21 19:01 04/03/21 19:01 04/03/21 19:01 04/03/21 19:01 General appearance: Present: no acute distress, well-nourished - EENT Eyes: Present: PERRL ENT: hearing intact, clear oral mucosa - Neck Neck: Present: supple, normal ROM - Respiratory Respiratory effort: normal Respiratory: bilateral: CTA - Cardiovascular Heart rate: 78 Rhythm: regular Heart Sounds: Present: S1 & S2. Absent: rub, click - Extremities Extremities: pulses symmetrical, No edema Peripheral Pulses: within normal limits - Abdominal General gastrointestinal: Present: soft, non-tender, non-distended, normal bowel sounds Female genitourinary: Present: normal - Integumentary Integumentary: Present: clear, warm, dry - Musculoskeletal Musculoskeletal: gait normal, strength equal bilaterally - Psychiatric Psychiatric: appropriate mood/affect, intact judgment & insight - Neurologic Neurologic: CNII-XII intact, moves all extremities Plan Activity: no restrictions Diet: low salt Follow up with: PRIMARY CARE, [Primary Care Provider] - 3-5 Days Prescriptions: Valsartan [Diovan] 160 mg PO Q12H 30 Days #60 tablet atenoloL [Tenormin] 50 mg PO QDAY #30 tablet
== END 2021-04-03 19:28 | disposition home or self-care (01) ==
LOC: ED 09:13 → 4A 13:00
PROVIDERS: ADMIT Internal Medicine; ATTEND Internal Medicine
DX: I63.9 Cerebral infarction, unspecified (principal); I10 Essential (primary) hypertension; E87.6 Hypokalemia; M62.81 Muscle weakness (generalized); H53.8 Other visual disturbances; R29.703 NIHSS score 3; R51.9 Headache, unspecified; Z79.899 Other long term (current) drug therapy; Z98.890 Other specified postprocedural states; Z98.51 Tubal ligation status
CPT/HCPCS: 36415; 70450; 70496; 70498; 80053; 82550; 82553; 82962; 84443; 84484; 85025; 85610; 85670; 85730; 93005; 93010; 96372; 96374; 99291; G0378; J1644; J2405; Q9967; 80320; G0480